=== PATIENT | female | born 1960 | race Caucasian/White ===

== ENCOUNTER 2017-08-02 09:45 | Day surgery (SDC) | payer BC ==
[2017-08-02] VITALS (12 sets, daily range): BP systolic 100–127; BP diastolic 66–75
[~2017-08-02] VITALS: Ht 160 cm; Wt 50.8 kg
--- NOTE | 2017-08-02 08:18 | Operative Note - PDOC ---
Operative Note Operative Note Pre-op Diagnosis: left shoulder rct, impingement Procedure: see op report Post-op Diagnosis: same as pre-op plus Operative Findings: consistent w/pre-op dx studies Anesthesia: regional Specimen: none Complications: none Condition: stable Estimated Blood Loss: none Implant(s) used?: Yes Gino Sierra MD Aug 02, 2017 08:18
--- NOTE | 2017-08-02 08:18 | Pre-Procedure Note/Attestation ---
Pre-Procedure Note/Attestation Complete Prior to Procedure Planned Procedure: left Procedure Narrative: left shoulder arthroscopy rc repair, sad Indications for Procedure Pre-Operative Diagnosis: left shoulder rct, impingement Attestation I attest that I discussed the nature of the procedure; its benefits; risks and complications; and alternatives (and the risks and benefits of such alternatives ), prior to the procedure, with the patient (or the patient's legal client representative). I attest that, if there was a reasonable possibility of needing a blood transfusion, the patient (or the patient's legal client representative) was given the [facility] standardized written summary, pursuant to the Gerald Pete Blood Safety Act ([place] Health and Safety Code # 1645, as amended). I attest that I re-evaluated the patient just prior to the surgery and that there has been no change in the patient's H&P, except as documented below: Gino Sierra MD Aug 02, 2017 08:18
[~2017-08-02 09:45] MED LIST: D5 1/2NS 1,000 ML IV SCH; Norco 5mg/325mg tab ORAL PRN; Tylenol #3 tab (300mg/30mg) ORAL PRN; ceFAZolin 1gm in D5W 55ml IVPB ONE; celeBREX 200mg Cap **SURGERY PATIENTS ONLY ORAL ONE; oxyCONTIN 20mg tab ORAL ONE
[2017-08-02] MEDS ORDERED: celeBREX 200mg Cap **SURGERY PATIENTS ONLY ORAL ONE (10:29)
[2017-08-02] MEDS ORDERED: oxyCONTIN 20mg tab ORAL ONE (10:29)
[2017-08-02] MEDS ORDERED: ASPIR-LOW81 MG ORAL (10:56)
[2017-08-02] MEDS ORDERED: NORCO 10-325 T1 EACH ORAL (10:56)
[2017-08-02] MEDS ORDERED: LATANOPROST2.5 ML BOTH EYES (10:56)
[2017-08-02] MEDS ORDERED: LR 1000ml 1,000 ML IVLG SCH (11:52)
--- NOTE | 2017-08-02 11:53 | Anethesia Preoperative Eval ---
Anesthesia Pre-op PMH/ROS General Date of Evaluation: Aug 02, 2017 Time of Evaluation: 12:14 Anesthesiologist: Stella ASA Score: ASA 2 Mallampati Score Class I : Soft palate, uvula, fauces, pillars visible Class II: Soft palate, uvula, fauces visible Class III: Soft palate, base of uvula visible Class IV: Only hard plate visible Mallampati Classification: Class I Surgeon: Rigo Diagnosis: L Shoulder Pain Surgical Procedure: L Shoulder Arthroscopy Anesthesia History: none Family History: no anesthesia problems Allergies: Coded Allergies: No Known Allergies (Unverified , 08/02/17) Medications: see eMAR Past Medical History HEENT: 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 Exam Physician Exam Last Vital Signs Date Time Temp Pulse Resp B/P (MAP) Pulse Ox O2 Delivery O2 Flow Rate FiO2 08/02/17 10:47 97.9 50 18 114/74 100 Room Air 97.9 Constitutional: NAD Neurologic: CN 2-12 intact Cardiovascular: RRR Respiratory: CTA Gastrointestinal: S/NT/ND Airway Exam Mallampati Score: Class I MO: full ROM: full Teeth: intact Anesthesia Pre-op A/P Risk Assessment & Plan Assessment: ASA 2 Plan: GA, BIS, L Supraclavicular Block Status Change Before Surgery: No Pre-Antibiotics Dru Gram Ancef IV Given Within 1 Hr of Incision: Yes Time Given: 12:48 Wayne Douglas MD Aug 02, 2017 11:53
[2017-08-02] MEDS ORDERED: LORazepam Inj 2mg/ml 1ml IV PRN (12:00)
[2017-08-02] MEDS ORDERED: Ketorolac 30mg Inj IV PRN ×2 (12:00)
[2017-08-02] MEDS ORDERED: Propofol 200mg/20ml IV ONE (12:00)
[2017-08-02] MEDS ORDERED: DiphenhydrAMINE 50mg/ml Inj IVP PRN (12:00)
[2017-08-02] MEDS ORDERED: Labetalol 5mg/ml 20ml vial IV PRN (12:00)
[2017-08-02] MEDS ORDERED: HYDROcodone/Acetamin 7.5/325 tab ORAL PRN (12:00)
[2017-08-02] MEDS ORDERED: Hydromorphone 0.5mg/0.5ml inj IVP PRN (12:00)
[2017-08-02] MEDS ORDERED: LR 1000ml ONE (12:00)
[2017-08-02] MEDS ORDERED: fentaNYL 100 mcg/2 mL IV PRN (12:00)
[2017-08-02] MEDS ORDERED: oxyCODONE HCL/Acetaminophen 5/325mg ORAL PRN (12:00)
[2017-08-02] MEDS ORDERED: Atropine Inj 1mg/10ml Syr IV PRN (12:00)
[2017-08-02] MEDS ORDERED: Midazolam 2mg/2ml Inj IVP PRN (12:00)
[2017-08-02] MEDS ORDERED: Norco 5mg/325mg tab ORAL PRN (12:00)
[2017-08-02] MEDS ORDERED: Metoclopramide 10mg/2ml Inj IVP PRN (12:00)
[2017-08-02] MEDS ORDERED: NS Irrig 4000ml IRRIG ONE (12:00)
[2017-08-02] MEDS ORDERED: Dexamethasone 4mg/ml vial ONE (12:18)
[2017-08-02] MEDS ORDERED: Lidocaine 1% MPF 10mg/ml 5ml ONE (12:18)
[2017-08-02] MEDS ORDERED: Sodium Chloride 10ml vial INJ ONE (12:18)
[2017-08-02] MEDS ORDERED: Ropivacaine 5mg/ml Vial 30ml INJ ONE ×2 (12:22→12:27)
[2017-08-02] MEDS ORDERED: Bupivacaine 0.25% Inj 30ml INJ ONE ×2 (12:28→13:36)
[2017-08-02] MEDS ORDERED: EPINEPHrine 1mg/1ml Amp ONE (12:28)
[2017-08-02] MEDS ORDERED: Alfentanil 2ml Inj ONE (12:39)
--- NOTE | 2017-08-02 13:17 | Immediate Post-Op Evaluation ---
Immediate Post-Op Evalulation Immediate Post-Op Evalulation Procedure: L Shoulder Arthroscopy Date of Evaluation: Aug 02, 2017 Time of Evaluation: 14:24 IV Fluids: 500 LR Blood Products: 0 Estimated Blood Loss: 7 Urinary Output: 0 Blood Pressure Systolic: 127 Blood Pressure Diastolic: 75 Pulse Rate: 71 Respiratory Rate: 16 O2 Sat by Pulse Oximetry: 100 Temperature (Fahrenheit): 97.8 Pain Score (1-10): 1 Nausea: No Vomiting: No Complications 0 Patient Status: awake, reacts, patent, extubated, none Hydration Status: adequate Dru Gram Ancef IV Given Within 1 Hr of Incision: Yes Time Given: 12:48 Wayne Douglas MD Aug 02, 2017 13:17
--- NOTE | 2017-08-02 13:18 | 48 Hour Post Anesthesia Eval ---
Post Anesthesia Evaluation Procedure: L Shoulder Arthroscopy Date of Evaluation: Aug 02, 2017 Time of Evaluation: 16:34 Blood Pressure Systolic: 121 0: 72 Pulse Rate: 68 Respiratory Rate: 18 Temperature (Fahrenheit): 98.2 O2 Sat by Pulse Oximetry: 100 Airway: patent Nausea: No Vomiting: No Pain Intensity: 1 Hydration Status: adequate Cardiopulmonary Status: Stable Mental Status/LOC: patient returned to baseline Follow-up Care/Observations: 0 Post-Anesthesia Complications: 0 Follow-up care needed: ready to discharge Wayne Douglas MD Aug 02, 2017 13:18
[2017-08-02] MEDS ORDERED: Duramorph PF 10mg/10ml amp IV ONE (13:36)
[2017-08-02] MEDS ORDERED: Kenalog-40 1ml Vial ONE (13:36)
[2017-08-02] MEDS ORDERED: Ketorolac 30mg Inj ONE (13:36)
[2017-08-02] MEDS ORDERED: Morphine Sulfate PF 10 ML ONE (13:36)
--- NOTE | 2017-08-05 10:30 | Operative Note - Dictated ---
DATE OF OPERATION: 08/02/2017 NOTE: "POOR AUDIO QUALITY" PREOPERATIVE DIAGNOSES: 1. Left shoulder partial rotator cuff tear. 2. Left shoulder adhesive capsulitis. 3. Left shoulder impingement syndrome. POSTOPERATIVE DIAGNOSES: 1. Left shoulder partial rotator cuff tear. 2. Left shoulder adhesive capsulitis. 3. Left shoulder impingement syndrome. 4. Grade 1 SLAP tear. PROCEDURE: 1. Left shoulder diagnostic arthroscopy and pancapsular release. 2. Left shoulder extensive intra-articular debridement. 3. Left shoulder subacromial decompression and bursectomy. 4. Manipulation under anesthesia, left shoulder. 5. Left shoulder repair/debridement of grade 1 SLAP tear. SURGEON: Gino iSerra M.D. ANESTHESIA: Interscalene with general. INDICATION FOR PROCEDURE: The patient is a pleasant female, who has had progressive left shoulder pain. She had evidence of impingement syndrome and did benefit from cortisone injections, but had continued recurrent symptoms. She had an MRI, which showed evidence of adhesive capsulitis, tendinitis, and possible rotator cuff tear. As she failed conservative management, she elected to undergo left shoulder subacromial decompression, bursectomy, and manipulation under anesthesia, evaluation of rotator cuff to be performed. Risks, limitations, expectations, and complications of the procedure were discussed in detail. All questions were addressed. DESCRIPTION OF PROCEDURE: Informed consent was obtained. The patient was brought to the operating room and placed under interscalene with general anesthesia. The patient was then carefully placed in the beach-chair position. Right shoulder was prepped and draped in sterile manner. Time-out was performed. At this point, examination and manipulation under anesthesia was performed. Shoulder was flexed to 170 degrees, shoulder abducted to 90 degrees, external rotation was 80, internal rotation was about 45. Little tightness in the posterior capsule. At this point, a posterolateral skin incision was then made. Trocar was introduced into the glenohumeral joint. There was significant erythema along the capsule of the superior labrum, biceps tendon, and undersurface of rotator cuff. There was some fraying of the superior labrum consistent with grade 1 SLAP tear. Shaver was then used to debride the superior labral tear down to nice healthy tissue. The biceps tendon was evaluated. Although there was some erythema along the insertion along the superior labrum, the intratubercular portion of the biceps tendon was intact. The undersurface of the rotator cuff had some fraying, but no obvious gurinder tear. No evidence of intraarticular loose bodies. At this point, it was felt that after manipulation under anesthesia and the SLAP tear evaluation, release of the rotator interval would be reasonable. Therefore, this was released using the ArthroCare device. The camera was then placed in the anteromedial portal. The posterior capsule was really thickened and fibrotic. It was then released and the internal rotation was lacking after the manipulation under anesthesia. At that point, the camera was placed in the subacromial space. Lateral portal was established. The acromion was identified. The acromioplasty was started from medial to lateral, and completed from posterior to anterior. Once that was done, the bursectomy was completed. The intra-articular injection containing 0.25% Marcaine with epinephrine, 40mg of Kenalog, 30mg of Toradol, 10cc of Duramorph was injected. The patient was awoken and taken to recovery room with stable vital signs. ESTIMATED BLOOD LOSS: Minimal. COMPLICATIONS: None. SPECIMENS: None. IMPLANTS: None. Gino Sierra M.D. DR: Shaista JOB#: [id number] CC: CONNOR
== END 2017-08-02 16:15 | disposition home or self-care (01) ==
LOC: SUR 09:45
DX: M75.112 Incomplete rotator cuff tear or rupture of left shoulder, not specified as traumatic (principal); M77.9 Enthesopathy, unspecified; M25.812 Other specified joint disorders, left shoulder; S43.432A Superior glenoid labrum lesion of left shoulder, initial encounter; X58.XXXA Exposure to other specified factors, initial encounter; Y92.9 Unspecified place or not applicable; G62.9 Polyneuropathy, unspecified
CPT/HCPCS: 29823; 29825; J0171; J0690; J1100; J1885; J2250; J2274; J2405; J2704; J2795; J3301; J3490; J7120; 94003; 94150